=== PATIENT | female | born 1985 | race Caucasian/White ===

== ENCOUNTER 2022-09-23 12:25 | Emergency (ER) | payer SELFPAY | END 2022-09-23 14:09 | disposition home or self-care (01) | LOC: JD.ED 12:25 | DX: R21 Rash and other nonspecific skin eruption (principal); Z86.16 Personal history of COVID-19 | CPT/HCPCS: 99282 ==

== ENCOUNTER 2022-10-09 16:00 | Emergency (ER) | payer MEDICAID | END 2022-10-09 18:05 | disposition left against medical advice (07) | LOC: JD.ED 16:00 | DX: R21 Rash and other nonspecific skin eruption (principal); E66.9 Obesity, unspecified; Z68.43 Body mass index [BMI] 50.0-59.9, adult; Z86.16 Personal history of COVID-19; Z87.891 Personal history of nicotine dependence | CPT/HCPCS: 81025; 99282; 99283 ==